=== PATIENT | male | born 1935 | race Caucasian/White ===

== ENCOUNTER 2022-07-12 21:34 | Emergency (ER) | payer MEDICARE, OTHER ==
[~2022-07-12] VITALS: Ht 180.3 cm; Wt 72.1 kg
[~2022-07-12 21:34] MED LIST: OLME5TAB3 PO; PLAVIX PO
[2022-07-12] MEDS ORDERED: PAXLOVID PO (22:13)
[2022-07-12 23:02] VITALS: BP 152/75
--- NOTE | 2022-07-12 23:02 | NUR ---
Patient discharged to home in stable condition. Written and verbal after care instructions given. Patient verbalizes understanding of instructions. Stressed follow up or return to ER for worsening s/s. Patient walked out with son with steady gait.
== END 2022-07-12 23:03 | disposition home or self-care (01) ==
LOC: ER 21:34
DX: U07.1 COVID-19 (principal); Z88.2 Allergy status to sulfonamides; I25.2 Old myocardial infarction; Z86.73 Personal history of transient ischemic attack (TIA), and cerebral infarction without residual deficits; Z79.02 Long term (current) use of antithrombotics/antiplatelets
CPT/HCPCS: 71045; A4663

== ENCOUNTER 2023-10-30 21:38 | Emergency (ER) | payer MEDICARE, OTHER ==
[~2023-10-30] VITALS: Ht 172.7 cm; Wt 68.0 kg
[~2023-10-30 21:38] MED LIST changes: +PAXLOVID PO
[2023-10-30] MEDS ORDERED: ACETAMINOPHEN 325 MG TABLET ONE (22:13)
[2023-10-30] MEDS: ACETAMINOPHEN 325 MG TABLET PO ONE (22:15)
[2023-10-30 22:46] LABS: BASOPHILS % (AUTO) 0.3 % (0.0-2.0); DIFFERENTIAL COMMENT 0; EOSINOPHILS % (AUTO) 0.1 % (0.0-7.0); HEMATOCRIT 32.3 % (36.7-47.1); HEMOGLOBIN 10.7 g/dL (12.5-16.3); LYMPHOCYTES # (AUTO) 0.8 K/uL (0.8-4.8); LYMPHOCYTES % (AUTO) 5.6 % (20.5-51.5); MEAN CORPUSCULAR HEMOGLOBIN 33.5 uug (23.8-33.4); MEAN CORPUSCULAR HGB CONC 33 g/dL (32.5-36.3); MEAN CORPUSCULAR VOLUME 100.9 fL (73.0-96.2); MONOCYTES # (AUTO) 0.9 K/uL (0.1-1.30); MONOCYTES % (AUTO) 5.8 % (0.0-11.0); NEUTROPHILS # (AUTO) 13.1 K/uL (1.8-8.9); NEUTROPHILS % (AUTO) 88.2 % (38.5-71.5); PLATELET COUNT (AUTO) 165 K/uL (152-348); RED CELL DISTRIBUTION WIDTH 14.3 % (12.1-16.2); WHITE BLOOD COUNT (AUTO) 14.8 K/uL (3.6-10.2)
[2023-10-30 23:03] LABS: CALCIUM 7.9 mg/dL (8.5-10.1); CARBON DIOXIDE 23 mmol/L (21-32); CHLORIDE 105 mmol/L (98-107); CREATININE 1.4 mg/dL (0.6-1.3); GLUCOSE 123 mg/dL (74-106); POTASSIUM 3.4 mmol/L (3.5-5.1); SODIUM SERUM 139 mmol/L (136-145); UREA NITROGEN, BLOOD 28 mg/dL (7-18)
[2023-10-30 23:09] LABS: LACTIC ACID 2.5 mmol/L (0.4-2.0)
[2023-10-30 23:13] LABS: ALANINE AMINOTRANSFERASE 19 U/L (16-63); ALBUMIN 3.2 g/dL (3.4-5.0); ALKALINE PHOSPHATASE 103 U/L (50-136); ASPARTATE AMINOTRANSFERASE 10 U/L (15-37); BILIRUBIN,TOTAL 2.6 mg/dL (0.2-1.0); NT-PRO BNP 1801 pg/mL (0-125); TOTAL PROTEIN, SERUM 6.2 g/dL (6.4-8.2)
[2023-10-30] MEDS ORDERED: CEFTRIAXONE /D5W 50ML IVPB **ER PYXIS IV ONE (23:44)
[2023-10-30] MEDS: CEFTRIAXONE 1 G in IV DEXTROSE 5% 50 ML IV ONE (23:50)
[2023-10-30] MEDS: IV NS 1000 ML 1,000 ML IV ONE (23:50)
[2023-10-31] MEDS ORDERED: AZIT250T PO (01:37)
[2023-10-31 02:28] VITALS: BP 117/60; TEMP 98.5; O2SAT 95
== END 2023-10-31 02:00 | disposition home or self-care (01) ==
LOC: ER 21:42
DX: J40 Bronchitis, not specified as acute or chronic (principal); I50.9 Heart failure, unspecified; Z98.890 Other specified postprocedural states; Z79.899 Other long term (current) drug therapy; Z88.2 Allergy status to sulfonamides
CPT/HCPCS: 99284; 96365; 80053; 83880; 85025; 87040; 84484; 36415 ×2; 83605 ×2; 71045; 82248; J0696; J7040; A4606; A4663